=== PATIENT | female | born 1995 | race Asian ===

== ENCOUNTER 2019-01-02 02:16 | Emergency (ER) | payer OTHER ==
[2019-01-02 02:34] VITALS: BP 112/72; PULSE 73; TEMP 98.4; BMI 25.6
--- NOTE | 2019-01-02 02:47 | PDOC ---
Attending Attestation - Resident Resident Name: Norman Hernández - ED Attending Attestation I have performed the following: I have examined & evaluated the patient, The case was reviewed & discussed with the resident, I agree w/resident's findings & plan - HPI HPI: 01/02/19 02:45 23-year-old with foreign body to the right ear, patient states a q tip end is stuck 01/02/19 02:46 - Physicial Exam PE: 01/02/19 02:47 agree with resident exam - Medical Decision Making 01/02/19 02:47 23 yo female with fb to right ear cotton swab c/w Q tip removed in entirety with alligator forceps by ED resident TM in tact with no bleeding d/c
--- NOTE | 2019-01-02 02:52 | PDOC ---
History of Present Illness - General Chief Complaint: Foreign Body (FB) Stated Complaint: FOREIGN BODY/RT EAR Time Seen by Provider: 01/02/19 02:39 History Source: Patient Exam Limitations: No Limitations - History of Present Illness Initial Comments: 01/02/19 02:47 Patient is a 23F with no significant PMH here today with a foreign body in R ear. Patient reports that she was using a q tip this evening when the cotton broke off. Patient attempted to take it out herself, but pushed it further in. Patient complains of pain and hearing the scratches of the cotton in her ear. Past History - Past Medical History Allergies/Adverse Reactions: Allergies Allergy/AdvReac Type Severity Reaction Status Date / Time tizanidine Allergy Severe Verified 01/02/19 02:34 Home Medications: Ambulatory Orders Ibuprofen [Advil -] 400 mg PO QID 03/30/16 Clotrimazole [Clotrimazole-7] 5 gm VG HS 7 Days cream.appl 05/15/16 Fluconazole [Diflucan -] 150 mg PO DAILY #6 tablet 05/15/16 Anemia: No Asthma: No Cancer: No Cardiac Disorders: No CVA: No COPD: No CHF: No Dementia: No Diabetes: No GI Disorders: No Disorders: No HTN: No Hypercholesterolemia: No Liver Disease: No Seizures: No Thyroid Disease: No - Surgical History Abdominal Surgery: No Appendectomy: No Cardiac Surgery: No Cholecystectomy: No Lung Surgery: No Neurologic Surgery: No Orthopedic Surgery: Yes (HARDWARE LEFT THUMB) - Suicide/Smoking/Psychosocial Hx Smoking History: Never smoked Have you smoked in the past 12 months: No Number of Cigarettes Smoked Daily: 10 Information on smoking cessation initiated: No 'Breaking Loose' booklet given: 03/30/16 Hx Alcohol Use: No Drug/Substance Use Hx: No Substance Use Type: Marijuana Hx Substance Use Treatment: No Review of Systems - Review of Systems Able to Perform ROS?: Yes Comments:: 01/02/19 02:48 GENERAL/CONSTITUTIONAL: No fever or chills. No weakness. HEAD, EYES, EARS, NOSE AND THROAT: No change in vision. +ear pain no discharge. No sore throat. RESPIRATORY: No cough, wheezing, or hemoptysis. MUSCULOSKELETAL: No joint or muscle swelling or pain. No neck or back pain. SKIN: No rash NEUROLOGIC: No headache, vertigo, loss of consciousness, or change in strength/ sensation. ALLERGIC/IMMUNOLOGIC: No hives or skin allergy. *Physical Exam - Vital Signs Last Vital Signs Temp Pulse Resp BP Pulse Ox 98.4 F 73 16 112/72 98 01/02/19 02:31 01/02/19 02:31 01/02/19 02:31 01/02/19 02:31 01/02/19 02:31 - Physical Exam Comments: 01/02/19 02:49 GENERAL: Awake, alert, and fully oriented, in no acute distress HEAD: No signs of trauma, normocephalic, atraumatic EYES: PERRLA, EOMI, sclera anicteric, conjunctiva clear ENT: Cotton in R ear, L ear clear with normal TM NECK: Normal ROM, supple, no lymphadenopathy, JVD, or masses LUNGS: No distress, speaks full sentences, clear to auscultation bilaterally HEART: Regular rate and rhythm, normal S1 and S2, no murmurs, rubs or gallops, peripheral pulses normal and equal bilaterally. EXTREMITIES: Normal inspection, Normal range of motion, no edema. No clubbing or cyanosis. NEUROLOGICAL: Cranial nerves II through XII grossly intact. Normal speech, normal gait, no focal sensorimotor deficits SKIN: Warm, Dry, normal turgor, no rashes or lesions noted. Medical Decision Making - Medical Decision Making 01/02/19 02:50 Patient is a 23F with ear foreign body. Removed with alligator forceps. TM normal after foreign body removal, with some erythema around ear canal. Will discharge home with ENT follow up if pain persists, but has already improved. *DC/Admit/Observation/Transfer Diagnosis at time of Disposition: Foreign body in right ear, initial encounter - Discharge Dispostion Disposition: HOME Condition at time of disposition: Good Decision to Admit order: No - Referrals Referrals: Carrillo Walsh MD [Primary Care Provider] - Adalid Delcid MD [Staff Physician] - - Patient Instructions Additional Instructions: Please return to the ED if your pain does not continue to improve. - Post Discharge Activity
== END 2019-01-02 03:04 | disposition home or self-care (01) ==
LOC: JER 02:16
PROC: 09C37ZZ Extirpation of Matter from Right External Auditory Canal, Via Natural or Artificial Opening (ICD-10-PCS; principal; 2019-01-02)
DX: T16.1XXA Foreign body in right ear, initial encounter (principal)
CPT/HCPCS: 69000; 99281-25

== ENCOUNTER 2020-10-20 11:30 | Emergency (ER) | payer OTHER ==
[2020-10-20 11:43] VITALS: PULSE 74; BMI 23.8
[2020-10-20] MEDS ORDERED: ACETAMINOPHEN 1000 MG/100 ML VIAL (NON FORMULARY) IVPB ONE (12:22)
[2020-10-20] MEDS ORDERED: ACETAMINOPHEN INJECTION 100 ML IVPB ONE (12:34)
[2020-10-20 13:20] LABS: BASO % 1.2 % (0-2.0); EOS % 0.8 % (0-4.5); HEMATOCRIT 37.8 % (32.4-45.2); LYMPH % 15.1 % (8-40); MCH 31.2 pg (25.7-33.7); MCHC 34.5 g/dl (32.0-36.0); MEAN CELL VOLUME 90.6 fl (80-96); MEAN PLT VOLUME 8.9 fl (7.5-11.1); MONO % 6.5 % (3.8-10.2); NEUT % 76.4 % (42.8-82.8); PLATELET COUNT 206 K/MM3 (134-434); RBC 4.17 M/mm3 (3.60-5.2); RDW 12.7 % (11.6-15.6); WHITE BLOOD COUNT 8.6 K/mm3 (4.0-10.0)
[2020-10-20 13:33] LABS: CALCIUM 8.5 mg/dL (8.5-10.1)
[2020-10-20 13:34] LABS: BLOOD UREA NITROGEN 6.7 mg/dL (7-18)
[2020-10-20 13:37] LABS: CREATININE 0.5 mg/dL (0.55-1.3)
[2020-10-20 13:41] LABS: INR 1.14 (0.83-1.09)
[2020-10-20 13:44] LABS: ACTIVATED PTT 26.8 SECONDS (25.2-36.5)
[2020-10-20] MEDS ORDERED: METHOTREXATE SODIUM/PF 25 MG/ML VIAL IM ONE (17:03)
[2020-10-20 17:46] VITALS: BP 107/67; TEMP 97.2
== END 2020-10-20 18:06 | disposition left against medical advice (07) ==
LOC: JER 11:30
PROC: 3E033NZ Introduction of Analgesics, Hypnotics, Sedatives into Peripheral Vein, Percutaneous Approach (ICD-10-PCS; principal; 2020-10-20)
DX: O00.90 Unspecified ectopic pregnancy without intrauterine pregnancy (principal)
CPT/HCPCS: 36415; 76817-TC; 80048; 84702; 85025; 85610; 85730; 86850; 86900; 86901; 96374; 99284-25; J0131